=== PATIENT | male | born 1970 | race Two or more races ===

== ENCOUNTER 2022-12-30 12:14 | Emergency (ER) | payer OTHER, SELFPAY ==
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
[2022-12-30 12:36] VITALS: BP 137/92; PULSE 77; RESP 19; TEMP 36.6; O2SAT 99; BMI 34.7
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
== END 2022-12-30 16:16 | disposition home or self-care (01) ==
PROVIDERS: Emergency Provider Emergency Medicine
DX: M54.50 Low back pain, unspecified (principal); M25.552 Pain in left hip; M25.551 Pain in right hip; Z79.899 Other long term (current) drug therapy
CPT/HCPCS: 72100; 73502; 99282; 99283